=== PATIENT | female | born 1945 | race Caucasian/White ===

== ENCOUNTER 2017-11-16 05:19 | Inpatient (IN) | payer OTHER ==
[2017-11-08 13:05] LABS: HEMATOCRIT 42.6 % (37.0-47.0); HEMOGLOBIN 13.8 gm/dL (12.0-15.0); MCH 27.3 pg (26.0-34.0); MCHC 32.4 g/dL (28.0-37.0); MCV 84.1 fL (80.0-100.0); RBC 5.07 mil/uL (4.20-5.00); RDW 15.4 % (10.5-14.5); URINE BILIRUBIN NEGATIVE (Negative); URINE BLOOD NEGATIVE (Negative); URINE CLARITY CLEAR; URINE COLOR YELLOW; URINE GLUCOSE-RANDOM* NEGATIVE (Negative); URINE KETONES NEGATIVE (Negative); URINE LEUKOCYTES-REFLEX 1+ (Negative); URINE NITRITE-REFLEX NEGATIVE (Negative); URINE PROTEIN (DIPSTICK) NEGATIVE (Negative); URINE SPECIFIC GRAVITY <= 1.005 (1.005-1.035); URINE UROBILINOGEN 0.2 E.U./dl (0.2-1.0); WBC 7.9 thou/uL (4.0-11.0)
[2017-11-08 13:16] LABS: ALBUMIN 4.3 g/dL (3.4-5.0); CALCIUM 9.8 mg/dL (8.5-10.1); CREATININE 0.9 mg/dL (0.6-1.0); POTASSIUM 3.3 mmol/L (3.5-5.1); SQUAMOUS 0-3 Few /LPF (0-3); URINE WBC-REFLEX 6-15 Few /HPF (0-5)
[2017-11-08 13:17] LABS: BACTERIA-REFLEX >30 Many /HPF (None Seen); CASTS None Seen /LPF (None Seen); CRYSTALS None Seen /LPF (None Seen); URINE RBC None Seen /HPF (0-2)
[2017-11-08 13:18] LABS: INR 1.1; PROTIME 10.9 Seconds (9.3-11.4)
[2017-11-16] VITALS (10 sets, daily range): BP systolic 126–178; BP diastolic 63–98
[~2017-11-16] VITALS: Ht 149.9 cm; Wt 60.7 kg
--- NOTE | ~2017-11-16 | O ---
[facility] [place] [address] OPERATIVE REPORT Name: SOFIA GARVEY Room #: 403-P ADM IN M.R.#: [id number] Admission: 11/16/17 Attend Phys: Jerry Moreno MD Discharge: Date of : 45 Report #: [id number] THIS REPORT FOR: //name// CC: SONYA Moreno DATE OF SERVICE: 11/16/2017 PREOPERATIVE DIAGNOSIS: Left hip osteoarthritis. POSTOPERATIVE DIAGNOSIS: Left hip osteoarthritis. PROCEDURE: Left total hip arthroplasty. SURGEON: Jerry Moreno MD. SOIL SORT WORKER: Tavia Barraza PA-C INDICATION FOR SOIL SORT WORKER: Throughout the case, extensive retraction and manipulation of the hip was required. This was afforded to me by physician social work assistant. ANESTHESIA: General endotracheal. IMPLANTS: [employer] size 52 R3 acetabular cup with 1 acetabular screw, a size 11 high offset Synergy press fit stem and a size 36+0 cobalt chrome head. ESTIMATED BLOOD LOSS: 100 mL. COMPLICATIONS: None. SPECIMENS: None. CONDITION UPON LEAVING THE OPERATING ROOM: Stable. INDICATIONS FOR PROCEDURE: The patient is a 72-year-old female with severe left hip osteoarthritis. She failed conservative treatment for this and after discussion with her, she elected for left total hip arthroplasty. DESCRIPTION OF PROCEDURE: Risks, benefits, alternatives, complications were discussed in detail with the patient including but not limited to risk of anesthesia, risk of damage to nerves, arteries, blood vessels, risk for infection, bleeding, risk for continued hip pain, leg length discrepancy, instability and need for reoperation. Informed consent was obtained from the patient. The left hip was appropriately marked in the preoperative holding area. IV Ancef was given for preoperative antibiotics. She was brought to the [facility] [address] [place] [address] OPERATIVE REPORT Name: SOFIA GARVEY Room #: 403-P [facility] IN M.R.#: [id number] Admission: 11/16/17 Attend Phys: Jerry Moreno MD Discharge: Date of : 45 Report #: [id number] operating room and placed in supine position on the operating room table. General endotracheal anesthesia was induced without complication. She was then placed in the right lateral decubitus position with the left hip uppermost. Left hip and lower extremity were prepped and draped in normal sterile fashion. Timeout was performed properly identifying the patient and procedure as well as the instrumentation and implants. All in the operating room were in agreement. Standard posterior approach to the hip was made with 10 blade through the skin. Dissection was taken down to the fascia with Bovie cautery and Whitt elevator was used to clean off the fascia. Fresh #10 blade was used to make a fascial incision. This was taken proximally and distally with curved Gilbert scissor. Charnley retractor was placed. Trochanteric bursa was taken down with Bovie cautery. Piriformis tendon was identified, tagged and taken down with Bovie cautery. Short external rotators were also taken down with Bovie cautery. Capsulotomy was made and capsule ends were tagged for later repair. Hip was dislocated. There was extensive osteoarthritic change of the femoral head. Femoral neck cut was made 1 cm proximal to lesser trochanter based on preoperative templating. Femoral head was removed. Deep acetabular retractors were placed and the labrum was removed sharply. Pulvinar was removed with Bovie cautery. Acetabulum was then sequentially reamed up to a size 52, at which point, there was excellent bleeding cancellous bone. A size 51 trial cup was placed, found to have a good fit. A size 52 R3 acetabular cup was then placed and seated. One acetabular screw was placed for backup fixation and polyethylene liner for a 36 mm head was placed. After this, attention was turned to the femur. This was reamed and broached up to a size 11 at which point, the size 11 broach was stable. It was trialed with a high offset neck and a 36+0 head. Hip was reduced, taken through range of motion, found to be stable, found to have equal leg lengths. Hip was dislocated. Broach was removed and a final size 11 high offset Synergy press fit stem was placed. This was trialed again with a 36+0 head. Hip was reduced, taken through range of motion, found to be stable, found to have equal leg lengths. Hip dislocated one last time and a final size 36+0 cobalt chrome head was placed. Hip was reduced, taken through range of motion, found to be stable, found to have equal leg length. The wound was thoroughly irrigated with normal saline. A gram of vancomycin was placed deep in the hip joint. A periarticular injection consisting of morphine, ropivacaine, epinephrine and Toradol was placed in the hip joint. The piriformis and capsule were repaired with 0 FiberWire. Fascia was closed with 0 Vicryl, skin was closed with 2-0 Vicryl, 3-0 Monocryl. Dermabond and a RIZWAN dressing was applied. The patient tolerated this procedure well and went to recovery room under the care of anesthesia postoperatively. <ELECTRONICALLY SIGNED> By: Jerry Moreno MD 11/17/17 [id number] Jerry Moreno MD /nt
[~2017-11-16 05:19] MED LIST: APAP650 PO; ASPIR 8181 MG PO; CALCIUM 600 +1 EAC1 PO; CINNAMON500 MG PO; DETROL2 M1 PO; FISH OIL 1,001000 M2 PO; METFORMIN HCL500 MG PO; NIFEDIPINE ER90 M1 PO; TRAMADOL 50 MG50 MG PO; VITAMIN E400 UNIT PO; VITAMINC500 PO; ZOCOR40 MG PO
[2017-11-16 14:14] LABS: GLYCOHEMOGLOBIN (HGB A1C) 5.2 % (4.8-5.6)
[2017-11-17 04:00] VITALS: BP 96/49
[2017-11-17 05:18] LABS: HEMATOCRIT 26.8 % (37.0-47.0); HEMOGLOBIN 8.9 gm/dL (12.0-15.0); MCH 27.9 pg (26.0-34.0); MCHC 33.4 g/dL (28.0-37.0); MCV 83.6 fL (80.0-100.0); RBC 3.21 mil/uL (4.20-5.00); RDW 15.6 % (10.5-14.5)
[2017-11-17 07:40] VITALS: BP 137/48
[2017-11-17 14:55] VITALS: BP 122/59
[2017-11-17 15:23] VITALS: BP 137/48
[2017-11-17] MEDS ORDERED: TRI-BUFFERED A325 M1 PO (15:27)
[2017-11-17] MEDS ORDERED: PERCOCET PO (15:28)
[2017-11-17] MEDS ORDERED: NEURONTIN 300300 M1 PO (15:28)
[2017-11-17 15:44] VITALS: BP 137/48
== END 2017-11-17 16:19 | disposition home or self-care (01) | DRG 470 ==
LOC: 4N 05:19 → TBA 05:19 → PRE 05:36 → 4N 11:19 → PRE 12:06 → ENTRNSPT 11-17 16:02 → 4N 11-17 16:19
PROVIDERS: Orthopaedic Surgery
PROC: 0SRB01A Replacement of Left Hip Joint with Metal Synthetic Substitute, Uncemented, Open Approach (ICD-10-PCS; principal; 2017-11-16)
DX: M16.12 Unilateral primary osteoarthritis, left hip (principal)
CPT/HCPCS: 10790; 50010; 50101; 50382; 50414; 51771; 53000; 53078; 53367; 54118; 56524; 56527; 56528; 56530; 57095; 62110; 62900; 70005